=== PATIENT | male | born 1975 | race Caucasian/White ===

== ENCOUNTER → 2017-04-03 | Outpatient (CLI) | payer MEDICARE ==
[~2017-04-03] MED LIST: ALPR.5 PO; ATEN50 PO; ATOR40TA PO; Bactrim Ds Tab1 EACH PO; CARV25 PO; Catapres0.1 MG PO; DULO30 PO; FAMO20 PO; FLUO10; FURO20 PO; GABA600 PO; HYDMOR2 PO; Keflex500 MG PO; LOSA25 PO; Lantus100 UNIT/1; NEOCOLOTSU AS; NEOPOLHCSU AD; Novolog100 UNIT/2; OMEP20ER PO; OXYACE5T PO; Omeprazole20 M1 PO; PROM25 PO; RXHYDMOR2 PO; UNKNOWN BP PILL; UNKOWN B/P MED; VANCO 2 GR2 GM/250 M IV; ZOLP10 PO
== END | disposition home or self-care (01) ==
LOC: LAB 16:45
DX: L02.612 Cutaneous abscess of left foot (principal); L97.522 Non-pressure chronic ulcer of other part of left foot with fat layer exposed
CPT/HCPCS: 87070; 87077; 87147; 87186; 87205

== ENCOUNTER 2017-04-04 07:53 | Day surgery (SDC) | payer MEDICARE ==
[~2017-04-04] VITALS: Ht 188 cm; Wt 161.5 kg
[~2017-04-04 07:53] MED LIST changes: -VANCO 2 GR2 GM/250 M IV
[2017-04-06] MEDS ORDERED: VANCO 2 GR2 GM/250 M IV (08:12)
== END 2017-04-04 23:18 | disposition home or self-care (01) ==
LOC: ATC 07:53
DX: E11.42 Type 2 diabetes mellitus with diabetic polyneuropathy (principal); L03.032 Cellulitis of left toe; L03.116 Cellulitis of left lower limb; E11.9 Type 2 diabetes mellitus without complications; E78.5 Hyperlipidemia, unspecified; E66.01 Morbid (severe) obesity due to excess calories; F31.9 Bipolar disorder, unspecified; I10 Essential (primary) hypertension; K21.9 Gastro-esophageal reflux disease without esophagitis; E11.621 Type 2 diabetes mellitus with foot ulcer
CPT/HCPCS: 82565; 96365; 96366; J3370; J7050

== ENCOUNTER 2017-04-05 00:34 | Day surgery (SDC) | END 2017-04-05 18:29 | disposition home or self-care (01) ==

== ENCOUNTER 2017-04-06 | Day surgery (SDC) | END 2017-04-06 17:45 | disposition home or self-care (01) ==

== ENCOUNTER 2017-04-06 22:56 | Emergency (ER) | END 2017-04-06 23:25 | disposition left against medical advice (07) ==

== ENCOUNTER 2017-04-07 00:38 | Day surgery (SDC) | END 2017-04-07 10:33 | disposition home or self-care (01) ==

== ENCOUNTER 2017-06-10 16:00 | Emergency (ER) | payer MEDICARE ==
[~2017-06-10] VITALS: Ht 182.9 cm; Wt 158.8 kg
[~2017-06-10 16:00] MED LIST changes: +VANCO 2 GR2 GM/250 M IV
[2017-06-10 16:41] LABS: BASOPHILS ABSOLUTE AUTO 0.04 K/mm3 (0.00-0.23); BASOPHILS PERCENT AUTO 1 % (0-2); EOSINOPHILS ABSOLUTE AUTO 0.26 K/mm3 (0.00-0.68); EOSINOPHILS PERCENT AUTO 3 % (0-6); Hematocrit 39.4 % (37.0-53.0); Hemoglobin 13.5 g/dL (13.5-17.5); IMMATURE GRAN ABSOLUTE AUTO 0.02 K/mm3 (0.00-0.10); IMMATURE GRAN PERCENT AUTO 0 % (0-1); LYMPHOCYTES ABSOLUTE AUTO 2.06 K/mm3 (0.84-5.20); LYMPHOCYTES PERCENT AUTO 25 % (21-46); MONOCYTES ABSOLUTE AUTO 0.54 K/mm3 (0.16-1.47); MONOCYTES PERCENT AUTO 7 % (4-13); Mean Corpuscular HGB 29.3 pg (26.0-34.0); Mean Corpuscular HGB Conc 34.3 g/dL (31.5-36.5); Mean Corpuscular Volume 86 fL (80-100); Mean Platelet Volume 11.5 fL (9.1-12.4); NEUTROPHILS PERCENT AUTO 65 % (41-73); Platelet Count 117 K/mm3 (150-400); RDW Coefficient Variation 13.2 % (11.7-14.2); RDW Standard Deviation 40.8 fL (35.1-46.3); White Blood Cell Count 8.32 K/mm3 (4.00-11.30)
[2017-06-10 16:50] LABS: Troponin I <0.015 ng/mL (0.000-0.040)
[2017-06-10 16:51] LABS: Alanine Aminotransfer (ALT/SGP 54 U/L (12-78); Albumin, Blood 3.5 g/dL (3.4-5.0); Albumin/Globulin Ratio 0.9 (0.8-1.8); Alk Phos 87 U/L (50-136); Anion Gap 5 mmol/L (6-16); Aspartate Aminotrans (AST/SGOT 36 U/L (12-37); Bilirubin, Total 0.7 mg/dL (0.1-1.0); Blood Urea Nitrogen 13 mg/dL (8-24); Bun/Creatinine Ratio 16.8 (12.0-20.0); CO2, Blood 27 mmol/L (21-32); Calcium, Blood 8.8 mg/dL (8.5-10.1); Chloride, Blood 104 mmol/L (98-108); Creatinine, Blood 0.77 mg/dL (0.60-1.20); Globulin, Blood 3.9 g/dL (2.2-4.0); Glomerular Filtration Rate >60 (60-); Glucose, Blood 232 mg/dL (70-99); Potassium, Blood 4.1 mmol/L (3.5-5.5); Sodium, Blood 136 mmol/L (136-145); Total Protein, Blood 7.4 g/dL (6.4-8.2)
[2017-06-10] MEDS ORDERED: Keflex500 MG PO (18:36)
== END 2017-06-10 19:19 | disposition home or self-care (01) ==
LOC: ER 16:00
PROVIDERS: Emergency Medicine
DX: E11.621 Type 2 diabetes mellitus with foot ulcer (principal); L97.529 Non-pressure chronic ulcer of other part of left foot with unspecified severity; Z88.5 Allergy status to narcotic agent; Z79.899 Other long term (current) drug therapy; Z79.4 Long term (current) use of insulin; Z79.2 Long term (current) use of antibiotics; E11.9 Type 2 diabetes mellitus without complications; I10 Essential (primary) hypertension; E78.00 Pure hypercholesterolemia, unspecified
CPT/HCPCS: 73630; 80053; 84484; 85025; 93005; 93010; 96374; 99283; J0696

== ENCOUNTER 2018-02-12 18:53 | Emergency (ER) | payer MEDICARE, OTHER ==
[~2018-02-12] VITALS: Ht 185.4 cm; Wt 158.8 kg
== END 2018-02-12 19:23 | disposition left against medical advice (07) ==
LOC: ER 18:53
DX: Z53.21 Procedure and treatment not carried out due to patient leaving prior to being seen by health care provider (principal)

== ENCOUNTER → 2018-06-15 | Outpatient (CLI) | payer MEDICARE | END | disposition home or self-care (01) | LOC: LAB SHORT 13:57 → PLD 13:57 | DX: E11.621 Type 2 diabetes mellitus with foot ulcer (principal); E11.42 Type 2 diabetes mellitus with diabetic polyneuropathy; L97.513 Non-pressure chronic ulcer of other part of right foot with necrosis of muscle; Z89.411 Acquired absence of right great toe | CPT/HCPCS: 88305; 88311 ==

== ENCOUNTER → 2018-06-25 | Outpatient (CLI) | payer MEDICARE | END | disposition home or self-care (01) | LOC: LAB SHORT 12:40 → LAB 12:40 | DX: L03.031 Cellulitis of right toe (principal) | CPT/HCPCS: 87070; 87075; 87077; 87186; 87205 ==

== ENCOUNTER → 2018-06-29 | Outpatient (CLI) | payer MEDICARE | END | disposition home or self-care (01) | LOC: LAB SHORT 16:42 → LAB 16:42 | DX: L97.509 Non-pressure chronic ulcer of other part of unspecified foot with unspecified severity (principal) | CPT/HCPCS: 87070; 87205 ==